=== PATIENT | male | born 1975 | race Caucasian/White ===

== ENCOUNTER 2019-04-30 06:31 | Day surgery (SDC) | payer OTHER ==
[~2019-04-30] VITALS: Ht 185.4 cm; Wt 83.9 kg
[~2019-04-30 06:31] MED LIST: LACTATED RINGERS 1,000 ML IV SCH
[2019-04-30] MEDS ORDERED: IBUP-2029 PO (09:11)
[2019-04-30] MEDS ORDERED: MELA10TA2 PO (09:11)
[2019-04-30] MEDS ORDERED: BUPIVACAINE HCL 0.5% (5MG/ML) 50ML ONE (09:47)
[2019-04-30] MEDS ORDERED: SKIN ADHESIVE 0.7 GM EA TOP ONE (09:47)
[2019-04-30] MEDS: HYDROMORPHONE HCL/PF 2MG/ML CPJ IV PRN ×2 (12:40→12:46)
[2019-04-30] MEDS ORDERED: HYDROCODONE/ACETAMINOPHEN 5/325MG TABLET PO PRN (13:15)
[2019-04-30 13:18] VITALS: BP 136/78
== END 2019-04-30 14:00 | disposition home or self-care (01) ==
LOC: OR 06:31
PROVIDERS: ATTEND Surgery
DX: K40.90 Unilateral inguinal hernia, without obstruction or gangrene, not specified as recurrent (principal); Z79.899 Other long term (current) drug therapy; Z98.890 Other specified postprocedural states
CPT/HCPCS: 49650; C1781; J1170; J3490; S2900